=== PATIENT | male | born 1995 | race Caucasian/White ===

== ENCOUNTER 2017-10-24 04:53 | Inpatient (IN) | payer MEDICARE, MEDICAID ==
[~2017-10-24] VITALS: Ht 167.6 cm; Wt 83.0 kg
[2017-10-24 05:45] LABS: BASOPHILS # (AUTO) 0.06 K/uL (0.00-0.20); BASOPHILS % (AUTO) 0.5 % (0.0-2.0); EOSINOPHILS # (AUTO) 0.05 K/uL (0.00-0.70); EOSINOPHILS % (AUTO) 0.36 % (1.0-6.0); HEMATOCRIT 47.5 % (41-53); HEMOGLOBIN 15.9 g/dL (13.5-17.5); LYMPHOCYTES # (AUTO) 1.8 K/uL (1.0-4.8); LYMPHOCYTES % (AUTO) 13.7 % (22.0-44.0); MEAN CORPUSCULAR HGB CONC 33.4 G/dL (31.0-37.0); MEAN CORPUSCULAR VOLUME 87 fL (80-100); MONOCYTES # (AUTO) 0.7 K/uL (0.1-1.0); MONOCYTES % (AUTO) 5.4 % (2.0-9.0); NEUTROPHILS # (AUTO) 10.7 K/uL (1.8-7.7); NEUTROPHILS % (AUTO) 80.1 % (40.0-70.0); PLATELET COUNT (AUTO) 278 K/uL (150-450); RED BLOOD CELL COUNT(AUTO) 5.48 MIL/uL (4.50-5.90); RED CELL DISTRIBUTION WIDTH 13.9 % (11.5-14.5)
[2017-10-24 05:50] LABS: ANION GAP 9 mmol/L (8-16); CALCIUM, TOTAL 9.1 mg/dL (8.8-10.5); CARBON DIOXIDE 26 mmol/L (22-29); CHLORIDE 107 mmol/L (98-107); CREATININE 0.96 mg/dL (0.60-1.30); GLOMERULAR FILTR. RATE CALC > 60 mL/min (>60); GLUCOSE,RANDOM 101 mg/dL (70-110); POTASSIUM 3.6 mmol/L (3.5-5.1); SODIUM SERUM 142 mmol/L (136-145); UREA NITROGEN, BLOOD 15 mg/dL (7-18)
[2017-10-24 05:55] LABS: ALANINE AMINOTRANSFERASE 99 U/L (12-78); ALBUMIN 4.2 g/dL (3.4-5.0); ALKALINE PHOSPHATASE 61 U/L (46-116); ASPARTATE AMINOTRANSFERASE 119 U/L (15-37); BILIRUBIN,TOTAL 0.6 mg/dL (0.1-1.0); TOTAL PROTEIN, SERUM 7.6 g/dL (6.4-8.2)
[2017-10-24] MEDS ORDERED: LORazepam 2 MG/ML VIAL ONE (08:15)
[2017-10-24] MEDS ORDERED: HALOPERIDOL LACTATE 5 MG/ML VIAL ONE (08:15)
[2017-10-24] MEDS ORDERED: DiphenhydrAMINE HCL 50 MG/ML VIAL ONE (08:15)
[2017-10-24 09:12] LABS: AMPHET/METH SCREEN,URINE NEGATIVE (NEGATIVE); BARBITURATE SCREEN, URINE NEGATIVE (NEGATIVE); BENZODIAZEPINES SCREEN,URINE NEGATIVE (NEGATIVE); CANNABINOID SCREEN,URINE NEGATIVE (NEGATIVE); COCAINE SCREEN,URINE NEGATIVE (NEGATIVE); METHADONE SCREEN, URINE NEGATIVE (NEGATIVE); OPIATE SCREEN,URINE NEGATIVE (NEGATIVE)
[2017-10-24 09:13] LABS: PHENCYCLIDINE SCREEN,URINE NEGATIVE (NEGATIVE)
[2017-10-24 10:02] LABS: APPEARANCE,URINE CLEAR (CLEAR); GLUCOSE, URINE (UA) NEGATIVE (NEGATIVE); KETONES,URINE 40 mg/dL (NEGATIVE); LEUKOCYTE ESTERASE ,URINE NEGATIVE (NEGATIVE); NITRATE,URINE NEGATIVE (NEGATIVE); OCCULT BLOOD,URINE NEGATIVE (NEGATIVE)
[2017-10-24 10:24] LABS: BILIRUBIN,URINE PRELIM. POSITIVE (NEGATIVE)
[2017-10-24 10:25] LABS: PROTEIN,URINE NEGATIVE (NEGATIVE)
[2017-10-24] MEDS ORDERED: DiphenhydrAMINE HCL 50 MG/ML VIAL IM ONE (12:00)
[2017-10-24] MEDS ORDERED: LORazepam 2 MG/ML VIAL IM ONE (12:00)
[2017-10-24] MEDS ORDERED: HALOPERIDOL LACTATE 5 MG/ML VIAL IM ONE (12:00)
[2017-10-24 16:00] VITALS: BP 136/86
[2017-10-24 16:25] VITALS: BP 139/88
[2017-10-25] MEDS: ZOLPIDEM TARTRATE 10 MG TABLET PO PRN ×2 (00:13→20:43)
[2017-10-25] MEDS: LORazepam 2 MG TABLET PO PRN ×4 (00:13→20:43)
[2017-10-25 00:19] VITALS: BP 138/88
[2017-10-25 08:06] VITALS: BP 130/84
[2017-10-25 08:26] LABS: CHOL/HDL RATIO 2.9 (4.2-7.3)
[2017-10-25] MEDS: HALOPERIDOL 5 MG TABLET PO PRN ×2 (08:52→16:25)
[2017-10-25 16:00] VITALS: BP 122/75
[2017-10-25] MEDS: MIRTAZAPINE 15 MG TABLET PO SCH (20:42)
[2017-10-26 05:33] VITALS: BP 133/75
[2017-10-26] MEDS: LORazepam 2 MG TABLET PO PRN ×2 (06:08→17:07)
[2017-10-26 08:14] VITALS: BP 143/80
[2017-10-26] MEDS ORDERED: HALOPERIDOL LACTATE 5 MG/ML VIAL ONE (08:35)
[2017-10-26] MEDS ORDERED: DiphenhydrAMINE HCL 50 MG/ML VIAL ONE (08:35)
[2017-10-26] MEDS ORDERED: LORazepam 2 MG/ML VIAL ONE (08:35)
[2017-10-26] MEDS ORDERED: DiphenhydrAMINE HCL 50 MG/ML VIAL IM ONE (08:45)
[2017-10-26] MEDS ORDERED: LORazepam 2 MG/ML VIAL IM ONE (08:45)
[2017-10-26] MEDS ORDERED: HALOPERIDOL LACTATE 5 MG/ML VIAL IM ONE (08:45)
[2017-10-26 09:16] VITALS: BP 113/68
[2017-10-26] MEDS: ARIPiprazole 10 MG TABLET PO SCH (09:24)
[2017-10-26] MEDS: MONTELUKAST SODIUM 10 MG TABLET PO SCH (09:25)
[2017-10-26 16:11] VITALS: BP 138/76
[2017-10-26] MEDS: HALOPERIDOL 5 MG TABLET PO PRN (17:07)
[2017-10-26] MEDS: MIRTAZAPINE 15 MG TABLET PO SCH (20:33)
[2017-10-27 08:16] VITALS: BP 130/55
[2017-10-27] MEDS: ARIPiprazole 10 MG TABLET PO SCH (08:56)
[2017-10-27] MEDS: MONTELUKAST SODIUM 10 MG TABLET PO SCH (08:56)
[2017-10-27] MEDS: LORazepam 2 MG TABLET PO PRN (15:59)
[2017-10-27] MEDS: HALOPERIDOL 5 MG TABLET PO PRN (15:59)
[2017-10-27 16:15] VITALS: BP 121/89
[2017-10-27] MEDS: MIRTAZAPINE 15 MG TABLET PO SCH (20:04)
[2017-10-28 05:03] VITALS: BP 140/85
[2017-10-28 08:22] LABS: BASOPHILS % (AUTO) 1.5 % (0.0-2.0); EOSINOPHILS % (AUTO) 2.1 % (1.0-6.0); HEMATOCRIT 46.5 % (41-53); HEMOGLOBIN 15.7 g/dL (13.5-17.5); LYMPHOCYTES # (AUTO) 2.1 K/uL (1.0-4.8); LYMPHOCYTES % (AUTO) 25.8 % (22.0-44.0); MEAN CORPUSCULAR HEMOGLOBIN 29.5 pg (26.0-34.0); MEAN CORPUSCULAR HGB CONC 33.8 G/dL (31.0-37.0); MEAN CORPUSCULAR VOLUME 87 fL (80-100); MONOCYTES # (AUTO) 0.4 K/uL (0.1-1.0); MONOCYTES % (AUTO) 5.3 % (2.0-9.0); NEUTROPHILS # (AUTO) 5.3 K/uL (1.8-7.7); NEUTROPHILS % (AUTO) 65.3 % (40.0-70.0); PLATELET COUNT (AUTO) 270 K/uL (150-450); RED BLOOD CELL COUNT(AUTO) 5.34 MIL/uL (4.50-5.90); RED CELL DISTRIBUTION WIDTH 13.4 % (11.5-14.5)
[2017-10-28 08:41] VITALS: BP 140/68
[2017-10-28] MEDS: HALOPERIDOL 5 MG TABLET PO PRN ×2 (08:41→16:50)
[2017-10-28] MEDS: LORazepam 2 MG TABLET PO PRN ×2 (08:41→16:50)
[2017-10-28] MEDS: ARIPiprazole 10 MG TABLET PO SCH (08:41)
[2017-10-28] MEDS: MONTELUKAST SODIUM 10 MG TABLET PO SCH (08:41)
[2017-10-28 09:28] LABS: ALANINE AMINOTRANSFERASE 87 U/L (12-78); ALBUMIN 3.9 g/dL (3.4-5.0); ALKALINE PHOSPHATASE 69 U/L (46-116); ASPARTATE AMINOTRANSFERASE 61 U/L (15-37); BILIRUBIN,TOTAL 0.3 mg/dL (0.1-1.0); CARBON DIOXIDE 29 mmol/L (22-29); CREATININE 1.07 mg/dL (0.60-1.30); GLOMERULAR FILTR. RATE CALC > 60 mL/min (>60); GLUCOSE,RANDOM 69 mg/dL (70-110); TOTAL PROTEIN, SERUM 7.2 g/dL (6.4-8.2); UREA NITROGEN, BLOOD 15 mg/dL (7-18)
[2017-10-28 09:31] LABS: ANION GAP 7 mmol/L (8-16); CHLORIDE 104 mmol/L (98-107); POTASSIUM 4.5 mmol/L (3.5-5.1); SODIUM SERUM 140 mmol/L (136-145)
[2017-10-28 09:38] LABS: CREATINE KINASE MB 6.7 ng/mL (0-5); FREE T4 (FREE THYROXINE) 0.99 ng/dL (0.76-1.46); MAGNESIUM 1.8 mg/dL (1.80-2.40); THYROID STIMULATING HORMONE 2.39 uIU/mL (0.36-3.74)
[2017-10-28 09:39] LABS: CKMB RELATIVE INDEX 0.3 % (0.0-4.0)
[2017-10-28 11:44] LABS: FOLATE SERUM 13.5 ng/mL (5.4-)
[2017-10-28 16:00] VITALS: BP 137/72
[2017-10-28] MEDS: MIRTAZAPINE 15 MG TABLET PO SCH (20:16)
[2017-10-29 06:14] VITALS: BP 137/90
[2017-10-29 08:00] VITALS: BP 134/68
[2017-10-29 08:26] LABS: ALANINE AMINOTRANSFERASE 75 U/L (12-78); ALBUMIN 3.9 g/dL (3.4-5.0); ALKALINE PHOSPHATASE 65 U/L (46-116); ANION GAP 8 mmol/L (8-16); ASPARTATE AMINOTRANSFERASE 49 U/L (15-37); BILIRUBIN,TOTAL 0.3 mg/dL (0.1-1.0); CARBON DIOXIDE 29 mmol/L (22-29); CHLORIDE 101 mmol/L (98-107); CREATININE 0.81 mg/dL (0.60-1.30); GLOMERULAR FILTR. RATE CALC > 60 mL/min (>60); GLUCOSE,RANDOM 110 mg/dL (70-110); POTASSIUM 4.3 mmol/L (3.5-5.1); SODIUM SERUM 138 mmol/L (136-145); TOTAL PROTEIN, SERUM 7.1 g/dL (6.4-8.2); UREA NITROGEN, BLOOD 13 mg/dL (7-18)
[2017-10-29] MEDS: HALOPERIDOL 5 MG TABLET PO PRN ×2 (09:17→16:37)
[2017-10-29] MEDS: LORazepam 2 MG TABLET PO PRN ×2 (09:17→16:37)
[2017-10-29] MEDS: MONTELUKAST SODIUM 10 MG TABLET PO SCH (09:17)
[2017-10-29] MEDS: ARIPiprazole 10 MG TABLET PO SCH (09:17)
[2017-10-29] MEDS: DIVALPROEX SODIUM 500 MG DR TABLET PO SCH ×2 (09:54→20:16)
[2017-10-29 12:46] LABS: CREATINE KINASE MB 5.3 ng/mL (0-5)
[2017-10-29 12:47] LABS: CKMB RELATIVE INDEX 0.4 % (0.0-4.0); CREATINE KINASE, TOTAL 1264 U/L (39-308)
[2017-10-29 16:07] VITALS: BP 130/75
[2017-10-29] MEDS: MIRTAZAPINE 15 MG TABLET PO SCH (20:16)
[2017-10-29] MEDS: ZOLPIDEM TARTRATE 10 MG TABLET PO PRN (20:16)
[2017-10-30 00:41] VITALS: BP 112/83
[2017-10-30 08:06] VITALS: BP 126/67
[2017-10-30] MEDS: LORazepam 2 MG TABLET PO PRN ×2 (09:00→16:15)
[2017-10-30] MEDS: ARIPiprazole 10 MG TABLET PO SCH (09:00)
[2017-10-30] MEDS: HALOPERIDOL 5 MG TABLET PO PRN ×2 (09:00→16:15)
[2017-10-30] MEDS: DIVALPROEX SODIUM 500 MG DR TABLET PO SCH ×2 (09:00→20:23)
[2017-10-30] MEDS: MONTELUKAST SODIUM 10 MG TABLET PO SCH (09:00)
[2017-10-30 16:26] VITALS: BP 125/67
[2017-10-30] MEDS: MIRTAZAPINE 15 MG TABLET PO SCH (20:23)
[2017-10-31 05:08] VITALS: BP 136/91
[2017-10-31] MEDS: HALOPERIDOL 5 MG TABLET PO PRN ×2 (08:12→12:13)
[2017-10-31] MEDS: DIVALPROEX SODIUM 500 MG DR TABLET PO SCH ×2 (08:12→20:08)
[2017-10-31] MEDS: MONTELUKAST SODIUM 10 MG TABLET PO SCH (08:12)
[2017-10-31] MEDS: ARIPiprazole 10 MG TABLET PO SCH (08:12)
[2017-10-31] MEDS: LORazepam 2 MG TABLET PO PRN ×2 (08:12→12:13)
[2017-10-31 08:13] VITALS: BP 111/66
[2017-10-31 09:07] LABS: ALANINE AMINOTRANSFERASE 63 U/L (12-78); ALBUMIN 3.6 g/dL (3.4-5.0); ALKALINE PHOSPHATASE 53 U/L (46-116); ANION GAP 8 mmol/L (8-16); ASPARTATE AMINOTRANSFERASE 32 U/L (15-37); BILIRUBIN,TOTAL 0.2 mg/dL (0.1-1.0); CALCIUM, TOTAL 8.7 mg/dL (8.8-10.5); CARBON DIOXIDE 29 mmol/L (22-29); CHLORIDE 102 mmol/L (98-107); CREATINE KINASE MB 3.8 ng/mL (0-5); CREATINE KINASE, TOTAL 597 U/L (39-308); CREATININE 0.79 mg/dL (0.60-1.30); GLOMERULAR FILTR. RATE CALC > 60 mL/min (>60); GLUCOSE,RANDOM 80 mg/dL (70-110); POTASSIUM 4.2 mmol/L (3.5-5.1); SODIUM SERUM 139 mmol/L (136-145); TOTAL PROTEIN, SERUM 6.7 g/dL (6.4-8.2); UREA NITROGEN, BLOOD 14 mg/dL (7-18)
[2017-10-31 16:00] VITALS: BP 119/68
[2017-10-31] MEDS: MIRTAZAPINE 15 MG TABLET PO SCH (20:08)
[2017-11-01 03:11] VITALS: BP 126/67
[2017-11-01] MEDS: ARIPiprazole 10 MG TABLET PO SCH (09:13)
[2017-11-01] MEDS: DIVALPROEX SODIUM 500 MG DR TABLET PO SCH ×2 (09:14→20:42)
[2017-11-01] MEDS: MONTELUKAST SODIUM 10 MG TABLET PO SCH (09:14)
[2017-11-01] MEDS: HALOPERIDOL 5 MG TABLET PO PRN ×2 (09:14→16:46)
[2017-11-01] MEDS: LORazepam 2 MG TABLET PO PRN ×2 (09:14→16:46)
[2017-11-01 09:20] VITALS: BP 119/64
[2017-11-01] MEDS ORDERED: LORazepam 2 MG/ML VIAL ONE (11:05)
[2017-11-01] MEDS ORDERED: HALOPERIDOL LACTATE 5 MG/ML VIAL ONE (11:05)
[2017-11-01] MEDS ORDERED: DiphenhydrAMINE HCL 50 MG/ML VIAL ONE (11:05)
[2017-11-01] MEDS ORDERED: LORazepam 2 MG/ML VIAL IM ONE (11:15)
[2017-11-01] MEDS ORDERED: DiphenhydrAMINE HCL 50 MG/ML VIAL IM ONE (11:15)
[2017-11-01] MEDS ORDERED: HALOPERIDOL LACTATE 5 MG/ML VIAL IM ONE (11:15)
[2017-11-01 11:45] VITALS: BP 130/67
[2017-11-01 16:00] VITALS: BP 137/81
[2017-11-01] MEDS: MIRTAZAPINE 15 MG TABLET PO SCH (20:42)
[2017-11-02 04:52] VITALS: BP 132/76
[2017-11-02] MEDS: ALBUTEROL SULFATE HFA 90 MCG/PUFF 8 GM INHALER IH PRN ×2 (04:52→17:28)
[2017-11-02] MEDS: MONTELUKAST SODIUM 10 MG TABLET PO SCH (08:14)
[2017-11-02] MEDS: ARIPiprazole 10 MG TABLET PO SCH (08:14)
[2017-11-02] MEDS: LORazepam 2 MG TABLET PO PRN ×2 (08:15→16:16)
[2017-11-02] MEDS: DIVALPROEX SODIUM 500 MG DR TABLET PO SCH ×2 (08:15→20:09)
[2017-11-02] MEDS: HALOPERIDOL 5 MG TABLET PO PRN ×2 (08:15→16:16)
[2017-11-02 08:43] VITALS: BP 133/70
[2017-11-02] MEDS ORDERED: DiphenhydrAMINE HCL 50 MG/ML VIAL ONE (11:43)
[2017-11-02] MEDS ORDERED: HALOPERIDOL LACTATE 5 MG/ML VIAL ONE (11:43)
[2017-11-02] MEDS ORDERED: LORazepam 2 MG/ML VIAL ONE (11:43)
[2017-11-02] MEDS ORDERED: LORazepam 2 MG/ML VIAL IM ONE (11:45)
[2017-11-02] MEDS ORDERED: HALOPERIDOL LACTATE 5 MG/ML VIAL IM ONE (11:45)
[2017-11-02] MEDS ORDERED: DiphenhydrAMINE HCL 50 MG/ML VIAL IM ONE (11:45)
[2017-11-02 16:35] VITALS: BP 116/73
[2017-11-02] MEDS: ZOLPIDEM TARTRATE 10 MG TABLET PO PRN (20:09)
[2017-11-02] MEDS: MIRTAZAPINE 15 MG TABLET PO SCH (20:09)
[2017-11-03 05:01] VITALS: BP 130/86
[2017-11-03 08:05] VITALS: BP 122/85
[2017-11-03] MEDS: DIVALPROEX SODIUM 500 MG DR TABLET PO SCH ×2 (09:08→20:39)
[2017-11-03] MEDS: LORazepam 2 MG TABLET PO PRN ×2 (09:09→16:43)
[2017-11-03] MEDS: HALOPERIDOL 5 MG TABLET PO PRN ×2 (09:09→16:43)
[2017-11-03] MEDS: ARIPiprazole 10 MG TABLET PO SCH (09:09)
[2017-11-03] MEDS: MONTELUKAST SODIUM 10 MG TABLET PO SCH (09:09)
[2017-11-03 16:00] VITALS: BP 122/76
[2017-11-03] MEDS: MIRTAZAPINE 15 MG TABLET PO SCH (20:39)
[2017-11-04 05:25] VITALS: BP 116/78
[2017-11-04 08:13] VITALS: BP 133/78
[2017-11-04] MEDS: MONTELUKAST SODIUM 10 MG TABLET PO SCH (09:18)
[2017-11-04] MEDS: ARIPiprazole 10 MG TABLET PO SCH (09:18)
[2017-11-04] MEDS: LORazepam 2 MG TABLET PO PRN ×3 (09:18→18:04)
[2017-11-04] MEDS: DIVALPROEX SODIUM 500 MG DR TABLET PO SCH ×2 (09:22→21:17)
[2017-11-04] MEDS: HALOPERIDOL 5 MG TABLET PO PRN ×3 (09:42→18:04)
[2017-11-04 16:00] VITALS: BP 130/73
[2017-11-04] MEDS: MIRTAZAPINE 15 MG TABLET PO SCH (21:17)
[2017-11-05 05:52] VITALS: BP 125/74
[2017-11-05 08:11] VITALS: BP 122/84
[2017-11-05] MEDS: MONTELUKAST SODIUM 10 MG TABLET PO SCH (08:58)
[2017-11-05] MEDS: ARIPiprazole 10 MG TABLET PO SCH (08:58)
[2017-11-05] MEDS: DIVALPROEX SODIUM 500 MG DR TABLET PO SCH ×2 (08:58→20:08)
[2017-11-05] MEDS: LORazepam 2 MG TABLET PO PRN ×2 (08:58→16:09)
[2017-11-05] MEDS: HALOPERIDOL 5 MG TABLET PO PRN ×2 (09:40→16:09)
[2017-11-05 16:00] VITALS: BP 127/72
[2017-11-05] MEDS: MIRTAZAPINE 15 MG TABLET PO SCH (20:08)
[2017-11-06 01:38] VITALS: BP 122/71
[2017-11-06 08:05] VITALS: BP 122/80
[2017-11-06] MEDS: MONTELUKAST SODIUM 10 MG TABLET PO SCH (09:27)
[2017-11-06] MEDS: DIVALPROEX SODIUM 500 MG DR TABLET PO SCH ×2 (09:27→20:44)
[2017-11-06] MEDS: ARIPiprazole 10 MG TABLET PO SCH (09:27)
[2017-11-06 16:05] VITALS: BP 140/77
[2017-11-06] MEDS: MIRTAZAPINE 15 MG TABLET PO SCH (20:43)
[2017-11-06] MEDS: ZOLPIDEM TARTRATE 10 MG TABLET PO PRN (20:43)
[2017-11-06] MEDS: LORazepam 2 MG TABLET PO PRN (20:43)
[2017-11-06] MEDS: HALOPERIDOL 5 MG TABLET PO PRN (20:44)
[2017-11-07 05:32] VITALS: BP 133/81
[2017-11-07] MEDS ORDERED: MOMETASONE FUROATE 50 MCG/SPRAY 17 GM NASAL SPRAY NASAL SCH (09:00)
[2017-11-07 09:24] VITALS: BP 129/81
[2017-11-07] MEDS ORDERED: SODIUM CHLORIDE 1 GM TABLET PO SCH (09:30)
[2017-11-07] MEDS: MONTELUKAST SODIUM 10 MG TABLET PO SCH (09:44)
[2017-11-07] MEDS: ARIPiprazole 10 MG TABLET PO SCH (09:44)
[2017-11-07] MEDS: DIVALPROEX SODIUM 500 MG DR TABLET PO SCH (09:44)
[2017-11-07] MEDS ORDERED: DIVA250T4 PO (10:00)
[2017-11-07] MEDS ORDERED: DIVA500T35 PO (10:02)
[2017-11-07] MEDS ORDERED: ARIP10TA8 PO (10:02)
[2017-11-07] MEDS ORDERED: MIRT15 PO (10:02)
[2017-11-07] MEDS ORDERED: MOME17N NASAL (10:03)
[2017-11-07] MEDS ORDERED: MONT10TA21 PO (10:03)
== END 2017-11-07 11:00 | disposition home or self-care (01) | DRG 885 ==
LOC: EMS 04:54 → B3A 11:58
PROVIDERS: ADMIT Psychiatry & Neurology Child & Adolescent Psychiatry; ATTEND Psychiatry & Neurology Child & Adolescent Psychiatry
DX: F25.0 Schizoaffective disorder, bipolar type (principal); F70 Mild intellectual disabilities; M62.82 Rhabdomyolysis; D72.828 Other elevated white blood cell count; F41.9 Anxiety disorder, unspecified; J45.909 Unspecified asthma, uncomplicated; R74.0 Nonspecific elevation of levels of transaminase and lactic acid dehydrogenase [LDH]; L70.0 Acne vulgaris; Z59.0 Homelessness; Z91.5 Personal history of self-harm
CPT/HCPCS: 80074; 82306; 82607; 82746; 83735; 84439; 84443; 96372; 99285; G0480; J1200; J1630; J2060; J3535

== ENCOUNTER 2017-11-15 16:34 | Inpatient (IN) | payer MEDICARE, MEDICAID ==
[~2017-11-15] VITALS: Ht 167.6 cm; Wt 82.3 kg
[~2017-11-15 16:34] MED LIST: ARIP10TA8 PO; DIVA250T4 PO; DIVA500T35 PO; MIRT15 PO; MOME17N NASAL; MONT10TA21 PO
[2017-11-15 18:54] LABS: BASOPHILS # (AUTO) 0.03 K/uL (0.00-0.20); BASOPHILS % (AUTO) 0.3 % (0.0-2.0); EOSINOPHILS # (AUTO) 0.32 K/uL (0.00-0.70); EOSINOPHILS % (AUTO) 2.97 % (1.0-6.0); HEMATOCRIT 44.7 % (41-53); LYMPHOCYTES # (AUTO) 2.5 K/uL (1.0-4.8); MEAN CORPUSCULAR HEMOGLOBIN 29.3 pg (26.0-34.0); MEAN CORPUSCULAR HGB CONC 33.7 G/dL (31.0-37.0); MEAN CORPUSCULAR VOLUME 87 fL (80-100); MONOCYTES # (AUTO) 0.7 K/uL (0.1-1.0); MONOCYTES % (AUTO) 6.1 % (2.0-9.0); NEUTROPHILS # (AUTO) 7.3 K/uL (1.8-7.7); NEUTROPHILS % (AUTO) 67.7 % (40.0-70.0); PLATELET COUNT (AUTO) 270 K/uL (150-450); RED BLOOD CELL COUNT(AUTO) 5.13 MIL/uL (4.50-5.90); RED CELL DISTRIBUTION WIDTH 14.1 % (11.5-14.5)
[2017-11-15 19:02] LABS: ANION GAP 9 mmol/L (8-16); CALCIUM, TOTAL 8.6 mg/dL (8.8-10.5); CARBON DIOXIDE 26 mmol/L (22-29); CHLORIDE 105 mmol/L (98-107); GLOMERULAR FILTR. RATE CALC > 60 mL/min (>60); GLUCOSE,RANDOM 105 mg/dL (70-110); POTASSIUM 3.7 mmol/L (3.5-5.1); SODIUM SERUM 140 mmol/L (136-145); UREA NITROGEN, BLOOD 14 mg/dL (7-18)
[2017-11-15 19:08] LABS: ALANINE AMINOTRANSFERASE 80 U/L (12-78); ALBUMIN 3.8 g/dL (3.4-5.0); ALKALINE PHOSPHATASE 59 U/L (46-116); ASPARTATE AMINOTRANSFERASE 86 U/L (15-37); BILIRUBIN,TOTAL 0.2 mg/dL (0.1-1.0); TOTAL PROTEIN, SERUM 7.2 g/dL (6.4-8.2)
[2017-11-15] MEDS ORDERED: HALOPERIDOL LACTATE 5 MG/ML VIAL IM ONE (19:45)
[2017-11-15] MEDS ORDERED: DiphenhydrAMINE HCL 50 MG/ML VIAL IM ONE (19:45)
[2017-11-15] MEDS ORDERED: LORazepam 2 MG/ML VIAL IM ONE (19:45)
[2017-11-15 19:58] LABS: AMPHET/METH SCREEN,URINE NEGATIVE (NEGATIVE); BARBITURATE SCREEN, URINE NEGATIVE (NEGATIVE); BENZODIAZEPINES SCREEN,URINE NEGATIVE (NEGATIVE); CANNABINOID SCREEN,URINE NEGATIVE (NEGATIVE); COCAINE SCREEN,URINE NEGATIVE (NEGATIVE); METHADONE SCREEN, URINE NEGATIVE (NEGATIVE); OPIATE SCREEN,URINE NEGATIVE (NEGATIVE)
[2017-11-15 20:04] LABS: PHENCYCLIDINE SCREEN,URINE NEGATIVE (NEGATIVE)
[2017-11-15] MEDS ORDERED: LORazepam 2 MG TABLET PO PRN ×2 (21:00→21:30)
[2017-11-15] MEDS ORDERED: HALOPERIDOL 5 MG TABLET PO PRN ×2 (21:00→21:30)
[2017-11-15] MEDS ORDERED: ZOLPIDEM TARTRATE 10 MG TABLET PO PRN ×2 (21:00→21:30)
[2017-11-16 09:16] LABS: CHOL/HDL RATIO 3.1 (4.2-7.3); CHOLESTEROL 102 mg/dL (131-200); HDL CHOLESTEROL 33 mg/dL (40-60); LDL CHOL (CALC.) 61 mg/dL (0-130); TRIGLYCERIDES 41 mg/dL (15-150)
[2017-11-16 16:12] VITALS: BP 131/86
[2017-11-16] MEDS ORDERED: PNEUMOCOCCAL VACCINE POLYVALENT 0.5 ML VIAL [PPSV23] IM ONE (16:15)
[2017-11-16] MEDS ORDERED: INFLUENZA VIRUS VACCINE QVS 2017-18 (3YR+)/PF 60 MCG/0.5 ML SYRINGE IM ONE (16:15)
[2017-11-16] MEDS ORDERED: ALBUTEROL SULFATE HFA 90 MCG/PUFF 8 GM INHALER IH PRN (16:15)
[2017-11-16] MEDS ORDERED: MOMETASONE FUROATE 50 MCG/SPRAY 17 GM NASAL SPRAY NASAL PRN ×2 (16:15)
[2017-11-16] MEDS: LORazepam 2 MG TABLET PO PRN (16:17)
[2017-11-16] MEDS: HALOPERIDOL 5 MG TABLET PO PRN (16:17)
[2017-11-17 05:21] VITALS: BP 126/79
[2017-11-17 08:00] VITALS: BP 125/78
[2017-11-17] MEDS: HALOPERIDOL 5 MG TABLET PO PRN ×2 (08:12→18:22)
[2017-11-17] MEDS: MONTELUKAST SODIUM 10 MG TABLET PO SCH (08:12)
[2017-11-17] MEDS: LORazepam 2 MG TABLET PO PRN ×2 (08:12→18:22)
[2017-11-17] MEDS ORDERED: LORazepam 2 MG/ML VIAL ONE (08:46)
[2017-11-17] MEDS ORDERED: DiphenhydrAMINE HCL 50 MG/ML VIAL ONE (08:46)
[2017-11-17] MEDS ORDERED: HALOPERIDOL LACTATE 5 MG/ML VIAL ONE (08:46)
[2017-11-17] MEDS ORDERED: LORazepam 2 MG/ML VIAL IM ONE (09:00)
[2017-11-17] MEDS ORDERED: MONTELUKAST SODIUM 10 MG TABLET PO SCH (09:00)
[2017-11-17] MEDS ORDERED: HALOPERIDOL LACTATE 5 MG/ML VIAL IM ONE (09:00)
[2017-11-17] MEDS ORDERED: DiphenhydrAMINE HCL 50 MG/ML VIAL IM ONE (09:00)
[2017-11-17] MEDS: ARIPiprazole 15 MG TABLET PO SCH (12:15)
[2017-11-17 16:30] VITALS: BP 136/72
[2017-11-17] MEDS: MIRTAZAPINE 15 MG TABLET PO SCH (20:27)
[2017-11-17] MEDS: DIVALPROEX SODIUM 500 MG DR TABLET PO SCH (20:27)
[2017-11-18 03:16] VITALS: BP 128/80
[2017-11-18 08:05] VITALS: BP 126/64
[2017-11-18] MEDS: ARIPiprazole 15 MG TABLET PO SCH (08:34)
[2017-11-18] MEDS: MONTELUKAST SODIUM 10 MG TABLET PO SCH (08:34)
[2017-11-18] MEDS: DIVALPROEX SODIUM 500 MG DR TABLET PO SCH ×2 (08:34→21:00)
[2017-11-18] MEDS: HALOPERIDOL 5 MG TABLET PO PRN (10:27)
[2017-11-18 16:00] VITALS: BP 130/87
[2017-11-18] MEDS ORDERED: DiphenhydrAMINE HCL 50 MG/ML VIAL IM ONE (16:15)
[2017-11-18] MEDS ORDERED: LORazepam 2 MG/ML VIAL IM ONE (16:15)
[2017-11-18] MEDS ORDERED: HALOPERIDOL LACTATE 5 MG/ML VIAL IM ONE (16:15)
[2017-11-18] MEDS: MIRTAZAPINE 15 MG TABLET PO SCH (21:00)
[2017-11-19 05:53] VITALS: BP 128/80
[2017-11-19 08:00] VITALS: BP 136/85
[2017-11-19] MEDS: LORazepam 2 MG TABLET PO PRN ×3 (08:55→18:09)
[2017-11-19] MEDS: DIVALPROEX SODIUM 500 MG DR TABLET PO SCH ×2 (08:55→16:40)
[2017-11-19] MEDS: ARIPiprazole 15 MG TABLET PO SCH (08:55)
[2017-11-19] MEDS: MONTELUKAST SODIUM 10 MG TABLET PO SCH (08:55)
[2017-11-19] MEDS: HALOPERIDOL 5 MG TABLET PO PRN ×3 (08:56→18:09)
[2017-11-19 16:00] VITALS: BP 137/73
[2017-11-19] MEDS ORDERED: DIVALPROEX SODIUM 500 MG DR TABLET PO SCH (17:00)
[2017-11-19] MEDS: MIRTAZAPINE 15 MG TABLET PO SCH (20:49)
[2017-11-19] MEDS: ZOLPIDEM TARTRATE 10 MG TABLET PO PRN (20:49)
[2017-11-20 03:31] VITALS: BP 121/68
[2017-11-20 08:19] VITALS: BP 138/81
[2017-11-20] MEDS: MONTELUKAST SODIUM 10 MG TABLET PO SCH (08:42)
[2017-11-20] MEDS: ARIPiprazole 15 MG TABLET PO SCH (08:42)
[2017-11-20] MEDS: HALOPERIDOL 5 MG TABLET PO PRN ×2 (08:42→16:47)
[2017-11-20] MEDS: DIVALPROEX SODIUM 500 MG DR TABLET PO SCH ×2 (08:42→16:47)
[2017-11-20] MEDS: LORazepam 2 MG TABLET PO PRN ×2 (08:43→16:47)
[2017-11-20 16:00] VITALS: BP 136/72
[2017-11-20] MEDS: ZOLPIDEM TARTRATE 10 MG TABLET PO PRN (20:29)
[2017-11-20] MEDS: MIRTAZAPINE 15 MG TABLET PO SCH (20:29)
[2017-11-21 05:35] VITALS: BP 118/74
[2017-11-21 08:00] VITALS: BP 126/87
[2017-11-21] MEDS: DIVALPROEX SODIUM 500 MG DR TABLET PO SCH ×2 (08:45→17:21)
[2017-11-21] MEDS: ARIPiprazole 15 MG TABLET PO SCH (08:45)
[2017-11-21] MEDS: MONTELUKAST SODIUM 10 MG TABLET PO SCH (08:45)
[2017-11-21 16:07] VITALS: BP 128/76
[2017-11-21] MEDS: HALOPERIDOL 5 MG TABLET PO PRN (17:22)
[2017-11-21] MEDS: LORazepam 2 MG TABLET PO PRN (17:22)
[2017-11-21] MEDS: MIRTAZAPINE 15 MG TABLET PO SCH (21:21)
[2017-11-21] MEDS: ZOLPIDEM TARTRATE 10 MG TABLET PO PRN (21:22)
[2017-11-22 06:10] VITALS: BP 132/87
[2017-11-22 08:06] VITALS: BP 133/76
[2017-11-22] MEDS: LORazepam 2 MG TABLET PO PRN ×2 (09:09→16:37)
[2017-11-22] MEDS: ARIPiprazole 15 MG TABLET PO SCH (09:09)
[2017-11-22] MEDS: MONTELUKAST SODIUM 10 MG TABLET PO SCH (09:09)
[2017-11-22] MEDS: DIVALPROEX SODIUM 500 MG DR TABLET PO SCH ×2 (09:09→16:37)
[2017-11-22 16:00] VITALS: BP 121/65
[2017-11-22] MEDS: HALOPERIDOL 5 MG TABLET PO PRN (16:37)
[2017-11-22] MEDS: MIRTAZAPINE 15 MG TABLET PO SCH (20:28)
[2017-11-23 06:08] VITALS: BP 130/68
[2017-11-23 08:27] VITALS: BP 121/67
[2017-11-23] MEDS: LORazepam 2 MG TABLET PO PRN ×2 (08:48→16:13)
[2017-11-23] MEDS: DIVALPROEX SODIUM 500 MG DR TABLET PO SCH ×2 (08:48→16:13)
[2017-11-23] MEDS: ARIPiprazole 15 MG TABLET PO SCH (08:48)
[2017-11-23] MEDS: MONTELUKAST SODIUM 10 MG TABLET PO SCH (08:48)
[2017-11-23] MEDS: HALOPERIDOL 5 MG TABLET PO PRN ×2 (08:48→16:13)
[2017-11-23 08:54] LABS: CARBON DIOXIDE 32 mmol/L (22-29); CHLORIDE 104 mmol/L (98-107); POTASSIUM 4.5 mmol/L (3.5-5.1); SODIUM SERUM 141 mmol/L (136-145)
[2017-11-23 08:55] LABS: ALANINE AMINOTRANSFERASE 42 U/L (12-78); ALBUMIN 3.5 g/dL (3.4-5.0); ALKALINE PHOSPHATASE 51 U/L (46-116); ANION GAP 5 mmol/L (8-16); ASPARTATE AMINOTRANSFERASE 27 U/L (15-37); BILIRUBIN,TOTAL 0.4 mg/dL (0.1-1.0); CALCIUM, TOTAL 8.7 mg/dL (8.8-10.5); CREATINE KINASE MB 4.8 ng/mL (0-5); CREATINE KINASE, TOTAL 507 U/L (39-308); CREATININE 0.75 mg/dL (0.60-1.30); GLOMERULAR FILTR. RATE CALC > 60 mL/min (>60); GLUCOSE,RANDOM 71 mg/dL (70-110); TOTAL PROTEIN, SERUM 6.9 g/dL (6.4-8.2); UREA NITROGEN, BLOOD 13 mg/dL (7-18)
[2017-11-23 16:00] VITALS: BP 121/68
[2017-11-23] MEDS: MIRTAZAPINE 15 MG TABLET PO SCH (20:59)
[2017-11-23] MEDS: ZOLPIDEM TARTRATE 10 MG TABLET PO PRN (20:59)
[2017-11-24 05:59] VITALS: BP 120/73
[2017-11-24 08:38] VITALS: BP 123/61
[2017-11-24] MEDS: ARIPiprazole 15 MG TABLET PO SCH (08:53)
[2017-11-24] MEDS: MONTELUKAST SODIUM 10 MG TABLET PO SCH (08:53)
[2017-11-24] MEDS: DIVALPROEX SODIUM 500 MG DR TABLET PO SCH ×2 (08:53→16:25)
[2017-11-24 16:24] VITALS: BP 131/85
[2017-11-24] MEDS: LORazepam 2 MG TABLET PO PRN (18:52)
[2017-11-24] MEDS: HALOPERIDOL 5 MG TABLET PO PRN (18:52)
[2017-11-24] MEDS: MIRTAZAPINE 15 MG TABLET PO SCH (20:16)
[2017-11-25 06:34] VITALS: BP 110/68
[2017-11-25 08:30] VITALS: BP 103/60
[2017-11-25] MEDS: DIVALPROEX SODIUM 500 MG DR TABLET PO SCH ×2 (10:09→16:46)
[2017-11-25] MEDS: MONTELUKAST SODIUM 10 MG TABLET PO SCH (10:09)
[2017-11-25] MEDS: ARIPiprazole 15 MG TABLET PO SCH (10:09)
[2017-11-25] MEDS: LORazepam 2 MG TABLET PO PRN ×2 (10:09→16:46)
[2017-11-25] MEDS: HALOPERIDOL 5 MG TABLET PO PRN ×2 (10:10→16:46)
[2017-11-25 16:21] VITALS: BP 105/65
[2017-11-25] MEDS: ZOLPIDEM TARTRATE 10 MG TABLET PO PRN (21:05)
[2017-11-25] MEDS: MIRTAZAPINE 15 MG TABLET PO SCH (21:05)
[2017-11-26 06:49] VITALS: BP_SYST 106
[2017-11-26 08:30] VITALS: BP 121/68
[2017-11-26] MEDS: DIVALPROEX SODIUM 500 MG DR TABLET PO SCH ×2 (09:44→16:33)
[2017-11-26] MEDS: ARIPiprazole 15 MG TABLET PO SCH (09:44)
[2017-11-26] MEDS: MONTELUKAST SODIUM 10 MG TABLET PO SCH (09:44)
[2017-11-26 16:07] VITALS: BP 135/76
[2017-11-26] MEDS: MIRTAZAPINE 15 MG TABLET PO SCH (20:17)
[2017-11-26] MEDS: ZOLPIDEM TARTRATE 10 MG TABLET PO PRN (20:17)
[2017-11-27 06:25] VITALS: BP 138/84
[2017-11-27 08:36] VITALS: BP 124/76
[2017-11-27] MEDS: ARIPiprazole 15 MG TABLET PO SCH (09:11)
[2017-11-27] MEDS: MONTELUKAST SODIUM 10 MG TABLET PO SCH (09:11)
[2017-11-27] MEDS: DIVALPROEX SODIUM 500 MG DR TABLET PO SCH (09:11)
[2017-11-27 09:24] LABS: CKMB RELATIVE INDEX 1.1 % (0.0-4.0); CREATINE KINASE MB 6.4 ng/mL (0-5)
== END 2017-11-27 10:30 | disposition home or self-care (01) | DRG 885 ==
LOC: EMS 16:35 → B3A 11-16 13:05
PROVIDERS: ADMIT Psychiatry & Neurology Child & Adolescent Psychiatry; ATTEND Psychiatry & Neurology Child & Adolescent Psychiatry
DX: F20.0 Paranoid schizophrenia (principal); M62.82 Rhabdomyolysis; R45.851 Suicidal ideations; F94.0 Selective mutism; J45.909 Unspecified asthma, uncomplicated; F41.9 Anxiety disorder, unspecified; L70.0 Acne vulgaris; R79.89 Other specified abnormal findings of blood chemistry; Z78.1 Physical restraint status; Z79.899 Other long term (current) drug therapy; Z88.0 Allergy status to penicillin
CPT/HCPCS: 80074; 83735; 87081; 90471; 96372; 99285; G0480; J1200; J1630; J2060